=== PATIENT | male | born 1990 | race American Indian/Alaskan Native ===

== ENCOUNTER 2021-10-09 11:36 | Emergency (ER) | payer SELFPAY ==
[2021-10-09] MEDS ORDERED: HYDROcodone/ACETAMINOPHEN 5-325 MG TAB PO ONE (11:38)
--- NOTE | 2021-10-09 11:39 | Emergency Department Report ---
Upper Extremity - HPI Chief Complaint: Extremity Injury, Upper Stated Complaint: right hand injury Time Seen by Provider: 10/09/21 11:37 Upper Extremity: Right Hand Occurred When: Today Mechanism: Crush Severity: severe Symptoms: Yes Pain with Movement, Yes Limited Range of Movement, Yes Swelling, No Deformity, No Numbness, No Weakness, No Bruising/Ecchymosis, No Laceration or Abrasion Other History: 31-year-old male presents to the ER today with complaints of right hand injury. Patient states that this occurred just prior to arrival. He states that he was moving a draw chest when it accidentally fell on top of his hand. He reports pain, and swelling mainly over the ulnar aspect of his hand and pain with movement of his fifth finger. Patient states that he has not take anything for pain since the injury. He reports no prior injury to his hand or finger in the past. ED Review of Systems ROS: Stated complaint: right hand injury Other details as noted in HPI Comment: All other systems reviewed and negative Constitutional: denies: chills, fever Eyes: denies: eye pain, eye discharge, vision change ENT: denies: ear pain, throat pain, dental pain, hearing loss, epistaxis, congestion Respiratory: denies: cough, shortness of breath, SOB with exertion, SOB at rest, wheezing Endocrine: no symptoms reported Gastrointestinal: denies: abdominal pain, nausea, diarrhea Genitourinary: denies: urgency, dysuria, frequency, hematuria, discharge, testicular pain, testicular mass Musculoskeletal: joint swelling, arthralgia Skin: denies: rash, lesions, change in color, change in hair/nails, pruritus Neurological: denies: headache, weakness, numbness, paresthesias, confusion, abnormal gait, vertigo, other Psychiatric: denies: anxiety, depression, auditory hallucinations, visual hallucinations, homicidal thoughts, suicidal thoughts Hematological/Lymphatic: denies: easy bleeding, easy bruising, swollen glands ED Past Medical Hx - Medications Home Medications: Home Medications Medication Instructions Recorded Confirmed Last Taken Type HYDROcodone/APAP 5-325 [Bivins 1 each PO Q6HR PRN #12 tablet 10/09/21 Unknown Rx 5/325] Ibuprofen [Motrin] 600 mg PO Q8H PRN #30 tablet 10/09/21 Unknown Rx Upper Extremity Exam - Exam General: Vital signs noted. No distress. Alert and acting appropriately. Head and Torso: No HEENT Abnormality, No Neck Tenderness, No Chest/Lungs Abnormality, No Abdominal Tenderness, No Back Tenderness Shoulder Exam: Yes Normal Range of Motion in Shoulder, No Shoulder Tenderness, No Clavicle Tenderness, No Shoulder Deformity, No AC Joint Tenderness Arm Exam: No Arm/Humerus Tenderness, No Arm Deformity Elbow: Yes Normal Range of Motion in Elbow, No Elbow Tenderness, No Elbow Deformity Forearm: No Forearm Tenderness, No Forearm Deformity, No Pain with Pronation, No Pain with Supination Wrist: Yes Normal ROM in Wrist, No Wrist Tenderness, No Wrist Deformity, No Snuffbox Tenderness, No Pain with Axial Thumb Compression Hand: Yes Hand Tenderness (mainly over the 5th metacarpal bone of right hand ), Yes Digit Tenderness (mild proximal aspect of the 5th finger on right hand ), No Hand Deformity, No Normal ROM in Digit(s) (5th finger held in extension at level of MCP joint, flex reduced due to pain. ), No Digit(s) Deformity, No Tendon Dysfunction CMS Exam: Yes Normal Distal Pulses, Yes Normal Capillary Refill, Yes Normal Distal Sensation, No Broken Skin - Orthopedic Splinting/Casting Injury #1 Side: right Upper Extremity Injury Location: hand Upper Extremity Immobilizer: sling/shoulder immobilize, ulnar gutter Additional Comments: Patient neurovascular intact post splint treatment. Patient tolerating well without any complication. ED Medical Decision Making - Radiology Data Radiology results: report reviewed Patient: NILES HU MR#: [id number] : 1990 Acct:[id number] Age/Sex: 31 / M ADM Date: 10/09/21 Loc: ED Attending Dr: Ordering Physician: SWEETIE MILLER Date of Service: 10/09/21 Procedure(s): XR hand 3+V RT Accession Number(s): [id number] cc: SWEETIE MILLER Fluoro Time In Minutes: RIGHT HAND 4 VIEWS INDICATION: hand injury/pain. COMPARISON: None. IMPRESSION: Fractures are identified at the base of metacarpals 4 and 5. There is mild anterior angulation at both fracture sites. There is suggestion of mild callus formation at the fracture sites suggesting these are subacute to early chronic injuries. Please correlate with the patient's history. The remaining bony structures are intact. No joint pathology. Signer Name: Prashanth Larios Jr, MD Signed: 10/09/2021 12:06 PM Workstation Name: [id number] Transcribed By: TTR Dictated By: PRASHANTH LARIOS JR, MD Electronically Authenticated By: PRASHANTH LARIOS JR, MD Signed Date/Time: 10/09/21 1206 DD/ 1205 TD/TT: - Medical Decision Making Xray of the right hand reviewed and shows -- IMPRESSION: Fractures are identified at the base of metacarpals 4 and 5. There is mild anterior angulation at both fracture sites. There is suggestion of mild callus formation at the fracture sites suggesting these are subacute to early chronic injuries. Please correlate with the patient's history. The remaining bony structures are intact. No joint pathology. Discussed x-ray results with patient. He states that he sprained his hand before playing basketball though he had never gotten it checked out but never has had any known fractures to his hand in the past. Patient will be placed in a ulnar gutter fiberglass splint and placed in a sling. He was instructed to follow-up with orthopedic hand specialist, and he will need to call for an appointment. He will be given medication to help with his pain. Splint care discussed with patient. patient expressed understanding agree with plan. Patient was stable at time of discharge. Critical care attestation.: If time is entered above; I have spent that time in minutes in the direct care of this critically ill patient, excluding procedure time. ED Disposition Clinical Impression: Metacarpal bone fracture Disposition: HOME / SELF CARE / HOMELESS Is pt being admited?: No Does the pt Need Aspirin: No Condition: Stable Instructions: Posey Fracture Treated With ORIF Additional Instructions: I recommend that you do not remove the splint or get it wet. Keep your arm up in a sling as often as possible. Take the hydrocodone and ibuprofen as needed for pain. I do recommend that you follow-up with the orthopedic hand specialist, listed on discharge instructions. Call today to make an appointment hopefully for next week. I recommend limited use of your right hand until follow-up with Ortho. Return to the ER if anything worsens or changes in any way. Prescriptions: Ibuprofen [Motrin] 600 mg PO Q8H PRN #30 tablet PRN Reason: Pain HYDROcodone/APAP 5-325 [Bivins 5/325] 1 each PO Q6HR PRN #12 tablet PRN Reason: Pain Referrals: ROSENDO PITTMAN MD [Staff Physician] - 3-5 Days Forms: Work/School Release Form(ED) Time of Disposition: 12:19
--- NOTE | 2021-10-09 12:10 | XRay Report ---
RIGHT HAND 4 VIEWS INDICATION: hand injury/pain. COMPARISON: None. IMPRESSION: Fractures are identified at the base of metacarpals 4 and 5. There is mild anterior angu lation at both fracture sites. There is suggestion of mild callus formation at the fracture sites abreu ggesting these are subacute to early chronic injuries. Please correlate with the patient's history. T he remaining bony structures are intact. No joint pathology. Signer Name: Prashanth Larios Jr, MD Signed: 10/09/2021 12:06 PM Workstation Name: [id number]
[2021-10-09 12:45] VITALS: BP 128/72
== END 2021-10-09 12:44 | disposition home or self-care (01) ==
LOC: ED 11:36
DX: S62.314A Displaced fracture of base of fourth metacarpal bone, right hand, initial encounter for closed fracture (principal); S62.316A Displaced fracture of base of fifth metacarpal bone, right hand, initial encounter for closed fracture; W22.8XXA Striking against or struck by other objects, initial encounter; Y93.89 Activity, other specified; Y92.89 Other specified places as the place of occurrence of the external cause; Y99.8 Other external cause status
CPT/HCPCS: 99283; 99284